=== PATIENT | female | born 1975 | race Caucasian/White ===

== ENCOUNTER 2017-09-13 08:06 | Outpatient (CLI) | payer OTHER ==
[2017-09-13 11:22] LABS: ALBUMIN 4.4 g/dL (3.2-5.5); ALBUMIN/GLOBULIN RATIO 1.7 (1.0-2.2); BILIRUBIN,TOTAL 0.7 mg/dL (0.2-1.0); CREATININE 0.8 mg/dL (0.4-1.0)
[2017-09-13 11:29] LABS: BASOPHILS % (AUTO) 0.8 %; EOSINOPHILS # (AUTO) 0.1 10^3/uL (0.0-0.7); EOSINOPHILS % (AUTO) 2.8 %; HGB - HEMOGLOBIN 13.8 g/dL (12.0-16.0); LYMPHOCYTES # (AUTO) 1.9 10^3/uL (1.5-3.5); LYMPHOCYTES % (AUTO) 36.5 %; MEAN CORPUSCULAR HEMOGLOBIN 33.3 pg (27.0-31.0); MEAN CORPUSCULAR HGB CONC 35.2 g/dL (32.0-36.0); MEAN CORPUSCULAR VOLUME 94.6 fL (81.0-99.0); MEAN PLATELET VOLUME 12.8 fL (7.9-10.8); MONOCYTES # (AUTO) 0.4 10^3/uL (0.0-1.0); MONOCYTES % (AUTO) 7.9 %; NEUTROPHILS # (AUTO) 2.7 10^3/uL (1.5-6.6); PLT - PLATELET COUNT 119 10^3/uL (130-450); RED BLOOD COUNT 4.15 10^6/uL (4.20-5.40); RED CELL DISTRIBUTION WIDTH 12.1 % (12.0-15.0); WHITE BLOOD COUNT 5.1 x10^3/uL (4.8-10.8)
== END 2017-09-13 08:07 | disposition home or self-care (01) ==
LOC: LAB.F 08:06
PROVIDERS: ATTEND Physician Assistant Medical
DX: Z00.00 Encounter for general adult medical examination without abnormal findings (principal); I10 Essential (primary) hypertension
CPT/HCPCS: 36415; 80053; 85025

== ENCOUNTER 2018-01-18 09:00 | Outpatient (CLI) | payer OTHER ==
[2018-01-18 11:44] LABS: MUDS CUTOFF CONCENTRATIONS CUTOFF CONC BELOW:
[2018-01-18 12:01] LABS: AMPHETAMINE SCREEN,URINE NEGATIVE (NEGATIVE); COCAINE SCREEN URINE NEGATIVE (NEGATIVE); METHADONE SCREEN, URINE NEGATIVE (NEGATIVE); METHAMPHETAMINES SCREEN, URINE NEGATIVE (NEGATIVE); OPIATE SCREEN, URINE NEGATIVE (NEGATIVE); OXYCODONE SCREEN, URINE NEGATIVE (NEGATIVE); PROPOXYPHENE SCREEN, URINE NEGATIVE (NEGATIVE); TRICYCLIC ANTIDEPRESSANT,URINE NEGATIVE (NEGATIVE)
[2018-01-18 12:02] LABS: BENZODIAZEPINES SCREEN, URINE POSITIVE (NEGATIVE)
== END 2018-01-18 09:01 | disposition home or self-care (01) ==
LOC: LAB.R 09:00
PROVIDERS: ATTEND Physician Assistant Medical
DX: Z79.899 Other long term (current) drug therapy (principal)
CPT/HCPCS: 80306

== ENCOUNTER 2018-06-15 08:22 | Outpatient (CLI) | payer OTHER ==
--- NOTE | 2018-06-16 09:50 | Mammography Report ---
Reason: ANNUAL SCREENING Procedure Date: 06/15/2018 Accession Number: [id number] / [id number] Procedure: SARINA - Screening Mammo w/Danny CPT Code: FULL RESULT: EXAM: Screening Mammo w/Danny DATE: 06/15/2018 9:20 AM CLINICAL HISTORY: Baseline. No reported personal or family history of breast cancer. TECHNIQUE: Bilateral CC and MLO views were obtained. COMPARISON: Baseline exam. FINDINGS: The breasts demonstrate heterogeneously dense fibroglandular parenchyma bilaterally. Right breast: There is a 13 mm asymmetry seen in the 10-11 o'clock breast middle posterior depth 8 cm from nipple. There are no suspicious calcifications or areas of distortion. Left breast: There are no suspicious masses, calcifications or areas of distortion. IMPRESSION: Incomplete. BI-RADS cat 0. RECOMMENDATION: Right breast: 13 mm asymmetry 10-11 o'clock posterior breast as described. Additional imaging is recommended. Left breast: Negative. Annual mammographic screening is recommended. BI-RADS CATEGORY 0: Incomplete examination STANDARD QUALIFYING STATEMENTS: 1. This examination was not reviewed with the aid of Computer-Aided Detection (CAD). 2. A negative or benign imaging report should not preclude biopsy if clinically suspicious findings are present. 3. Dense breasts may obscure an underlying neoplasm. 4. This examination was reviewed with the aid of 3D breast imaging (tomosynthesis).
== END 2018-06-15 08:23 | disposition home or self-care (01) ==
LOC: DI 08:22
DX: Z12.31 Encounter for screening mammogram for malignant neoplasm of breast (principal); R92.8 Other abnormal and inconclusive findings on diagnostic imaging of breast
CPT/HCPCS: 77063; 77067

== ENCOUNTER 2018-06-21 08:51 | Outpatient (CLI) | payer OTHER ==
--- NOTE | 2018-06-21 13:10 | Mammography Report ---
Reason: ABN MAMMO - RT SPEC VIEWS Procedure Date: 06/21/2018 Accession Number: [id number] / [id number] Procedure: SARINA - Diag Special Views Dig RT CPT Code: FULL RESULT: EXAM: Diag Special Views Dig RT DATE: 06/21/2018 9:59 AM CLINICAL HISTORY: Recall from screening for asymmetry in the posterior 10-11 o'clock breast. TECHNIQUE: Spot magnified CC and MLO views right breast. 90 degree lateral with 3-D and 2-D mammography. COMPARISON: 06/15/2018 baseline FINDINGS: The breasts demonstrate heterogeneously dense fibroglandular parenchyma bilaterally. Right breast: There are no suspicious masses, calcifications or areas of distortion. Area of concern recalled from screening does not persist on additional views consistent with summation of normal tissue. IMPRESSION: Negative examination RECOMMENDATION: Routine annual screening unless otherwise clinically indicated. BI-RADS CATEGORY 1: Negative STANDARD QUALIFYING STATEMENTS: 1. This examination was not reviewed with the aid of Computer-Aided Detection (CAD). 2. A negative or benign imaging report should not preclude biopsy if clinically suspicious findings are present. 3. Dense breasts may obscure an underlying neoplasm. 4. This examination was reviewed with the aid of 3D breast imaging (tomosynthesis).
== END 2018-06-21 08:52 | disposition home or self-care (01) ==
LOC: DI 08:51
PROVIDERS: ATTEND Physician Assistant Medical
DX: R92.2 Inconclusive mammogram (principal)

== ENCOUNTER 2018-07-18 08:35 | Outpatient (CLI) | payer OTHER ==
[2018-07-18 11:55] LABS: BASOPHILS % (AUTO) 0.7 %; EOSINOPHILS # (AUTO) 0.2 10^3/uL (0.0-0.7); EOSINOPHILS % (AUTO) 2.8 %; HGB - HEMOGLOBIN 14.2 g/dL (12.0-16.0); LYMPHOCYTES # (AUTO) 1.7 10^3/uL (1.5-3.5); LYMPHOCYTES % (AUTO) 30.1 %; MEAN CORPUSCULAR HEMOGLOBIN 34.1 pg (27.0-31.0); MEAN CORPUSCULAR VOLUME 94.8 fL (81.0-99.0); MEAN PLATELET VOLUME 12.7 fL (7.9-10.8); MONOCYTES # (AUTO) 0.3 10^3/uL (0.0-1.0); MONOCYTES % (AUTO) 5.1 %; NEUTROPHILS # (AUTO) 3.5 10^3/uL (1.5-6.6); NEUTROPHILS % (AUTO) 61.3 %; PLT - PLATELET COUNT 148 10^3/uL (130-450); RED BLOOD COUNT 4.17 10^6/uL (4.20-5.40); WHITE BLOOD COUNT 5.7 x10^3/uL (4.8-10.8)
== END 2018-07-18 08:36 | disposition home or self-care (01) ==
LOC: LAB.F 08:35
PROVIDERS: ATTEND Physician Assistant Medical
DX: D69.6 Thrombocytopenia, unspecified (principal)
CPT/HCPCS: 36415; 85025

== ENCOUNTER 2018-08-29 21:58 | Outpatient (CLI) | payer BC ==
--- NOTE | 2018-08-29 23:24 | Ultrasound Report ---
Reason: ABDOMINAL PAIN,LOWER,POST TRAUMATIC STRESS SYNDROM Procedure Date: 08/29/2018 Accession Number: [id number] / [id number] Procedure: US - Abdomen Limited CPT Code: FULL RESULT: EXAM: ABDOMEN ULTRASOUND LIMITED EXAM DATE: 08/29/2018 10:59 PM. CLINICAL HISTORY: Right lower quadrant pain. Diarrhea. COMPARISON: None. TECHNIQUE: Real-time scanning was performed with static images obtained. FINDINGS: Appendix is not visualized. Marked compression was tolerated. No lymphadenopathy was seen. Trace free fluid noted in the right lower quadrant, measuring 1.1 x 0.5 x 0.6 cm. No bowel wall thickening seen. Right ovarian cyst was noted measuring 2.9 x 3.0 x 1.6 cm. No torsion seen. IMPRESSION: 1. Appendix not seen. 2. There is a 3 cm right ovarian cyst with trace free fluid in the right lower quadrant. RADIA The call report notification system was initiated by Dr. Robert Fajardo at 11:23 PM hrs on 08/29/2018.
== END 2018-08-29 21:59 | disposition home or self-care (01) ==
LOC: DI 21:58
PROVIDERS: ATTEND Physician Assistant Medical
DX: N83.201 Unspecified ovarian cyst, right side (principal)
CPT/HCPCS: 76705

== ENCOUNTER 2018-09-15 13:34 | Outpatient (CLI) | payer BC ==
[2018-09-15 16:59] LABS: THYROID STIMULATING HORMONE 1.61 uIU/mL (0.34-5.60)
[2018-09-15 17:27] LABS: FOLLICLE STIMULATING HORMONE 9.23 mIU/mL
[2018-09-15 17:28] LABS: LUTEINIZING HORMONE 7.9 mIU/mL
== END 2018-09-15 13:35 | disposition home or self-care (01) ==
LOC: LAB.F 13:34
PROVIDERS: ATTEND Physician Assistant Medical
DX: N95.9 Unspecified menopausal and perimenopausal disorder (principal); I10 Essential (primary) hypertension
CPT/HCPCS: 36415; 82670; 83001; 83002; 84443

== ENCOUNTER 2018-10-11 08:00 | Outpatient (CLI) | payer BC | END 2018-10-11 23:59 | disposition home or self-care (01) | LOC: LAB.R 08:00 | PROVIDERS: ATTEND Nurse Practitioner Obstetrics & Gynecology | DX: R35.0 Frequency of micturition (principal); N89.8 Other specified noninflammatory disorders of vagina | CPT/HCPCS: 87086; 87480; 87510; 87660 ==

== ENCOUNTER 2018-10-24 18:04 | Outpatient (CLI) | payer BC ==
--- NOTE | 2018-10-25 09:53 | XRAY Report ---
Reason: HIP PAIN,BILATERAL Procedure Date: 10/24/2018 Accession Number: [id number] / [id number] Procedure: XR - Hips 2V BILAT CPT Code: FULL RESULT: EXAM: BILATERAL HIP RADIOGRAPHY EXAM DATE: 10/24/2018 07:36 PM. CLINICAL HISTORY: Hip pain, bilateral, worse on the left. COMPARISON: HIP BILAT 12/18/2013 4:30 PM. TECHNIQUE: 2 views each. FINDINGS: Bones: Normal. No fractures or bone lesion. Right Hip: Mild joint space narrowing of the weightbearing surface compared to the left. Mild to moderate marginal osteophyte slightly greater on the right than the left. Left Hip: Mild marginal osteophyte of the femoral head. No significant joint space narrowing. Soft Tissues: Normal. No soft tissue swelling. IMPRESSION: Mild bilateral osteoarthritis of the hips appearing slightly worse on the right than the left. No fracture appreciated. RADIA
== END 2018-10-24 18:05 | disposition home or self-care (01) ==
LOC: DI 18:04
PROVIDERS: ATTEND Physician Assistant Medical
DX: M16.0 Bilateral primary osteoarthritis of hip (principal)
CPT/HCPCS: 73521

== ENCOUNTER 2018-11-29 14:21 | Outpatient (CLI) | payer BC ==
[2018-11-29 19:09] LABS: ALBUMIN/GLOBULIN RATIO 1.5 (1.0-2.2); BILIRUBIN,TOTAL 0.4 mg/dL (0.2-1.0); CALCIUM 8.8 mg/dL (8.5-10.3); CREATININE 0.7 mg/dL (0.4-1.0); TOTAL PROTEIN 6.6 g/dL (6.7-8.2)
[2018-11-30 07:28] LABS: PROGESTERONE 2.8 ng/mL
== END 2018-11-29 14:22 | disposition home or self-care (01) ==
LOC: LAB.F 14:21
PROVIDERS: ATTEND Physician Assistant Medical
DX: Z51.81 Encounter for therapeutic drug level monitoring (principal); N95.9 Unspecified menopausal and perimenopausal disorder; Z79.899 Other long term (current) drug therapy
CPT/HCPCS: 36415; 80053; 82670; 84144

== ENCOUNTER 2018-12-06 08:47 | Outpatient (CLI) | payer BC ==
[2018-12-06] MEDS ORDERED: GADOPENTETATE DIMEGLUMINE 5 ML VIAL IVP ONE ×2 (09:04→16:19)
[2018-12-06] MEDS ORDERED: BUFFERED LIDOCAINE 10 ML SYRINGE ONE (09:04)
[2018-12-06] MEDS ORDERED: IOTHALAMATE MEGLUMINE 50 ML VIAL ONE (09:05)
--- NOTE | 2018-12-06 14:33 | XRAY Report ---
Reason: UNILATERAL PRIMARY OSTEOARTHRITIS, RIGHT HIP Procedure Date: 12/06/2018 Accession Number: [id number] / [id number] Procedure: FL - Arthrogram Needle Placement CPT Code: FULL RESULT: EXAM: Arthrogram Needle Placement DATE: 12/06/2018 10:00 AM CLINICAL HISTORY: UNILATERAL PRIMARY OSTEOARTHRITIS, RIGHT HIP, RIGHT HIP PAIN COMPARISON: Plain films 12/18/2013 and 10/24/2018 TECHNIQUE: The risks, benefits, and alternatives of the procedure were discussed with the patient. All questions were answered. Written and verbal consent were obtained. The right hip joint was marked under fluoroscopy and prepped and draped in a sterile manner. Local anesthesia was performed with 1% lidocaine. A 22-gauge needle was then inserted into the hip joint. 10 mL of a solution containing 1% lidocaine, iodinated contrast, and gadolinium contrast was then injected. The needle was removed without immediate complication. Other: None. Fluoroscopic exposure time: 1 minute 10 seconds minutes. Number of fluoroscopic images: 3 FINDINGS: Bones and joints: No fracture or subluxation. Injection: Fluoroscopic images demonstrate needle placement and contrast in the right hip joint. IMPRESSION: Successful fluoroscopically guided arthrographic injection of the right hip joint. RADIA
[2018-12-06] MEDS ORDERED: IOTHALAMATE MEGLUMINE 50 ML VIAL IVP ONE (16:19)
[2018-12-06] MEDS ORDERED: BUFFERED LIDOCAINE 10 ML SYRINGE IU ONE (16:19)
--- NOTE | 2018-12-07 08:12 | MRI Report ---
Reason: UNILATERAL PRIMARY OSTEOARTHRITIS, RIGHT HIP Procedure Date: 12/06/2018 Accession Number: [id number] / [id number] Procedure: MRI - Arthrogram Hip RT CPT Code: FULL RESULT: EXAM: RIGHT HIP MRI ARTHROGRAM WITH CONTRAST EXAM DATE: 12/06/2018 10:39 AM. CLINICAL HISTORY: Right hip pain and osteoarthritis. COMPARISON: Bilateral hip radiography from 10/24/2018. TECHNIQUE: Multiplanar, multisequence T1-weighted and fluid-sensitive, small ilxby-je-ozmz sequences of the hip and large xrwgd-dm-orps sequences of the pelvis after an arthrographic injection of dilute gadolinium, dictated under a separate exam. Other: None. FINDINGS: Bones: Marginal osteophytes at the acetabulums and femoral heads. No acute fracture or osteonecrosis. Left Hip: The right lateral center edge angle is approximately 18 degrees. No acetabular retroversion. Femoral head/neck offset is within normal limits. No loose bodies. Grade III-IV chondromalacia at the superior and anterior aspects of the right acetabulum and femoral head. There are small focal tears at the anterior superior and anterior aspects of the right acetabular labrum. Free edge fraying at the right acetabular labrum. The ligamentum teres is intact. Other Joints: The visualized lumbar spine, sacroiliac joints, and pubic symphysis are unremarkable. Focal subcortical marrow edema at the anterosuperior aspect of the left acetabulum. The left lateral center edge angle is approximately 22 degrees. Musculature: No edema or fatty atrophy. The gluteus medius and minimus tendons are normal. The visualized hamstring tendons are normal. The ischiofemoral space is normal. Pelvic Cavity: The visualized viscera are unremarkable. No lymphadenopathy. Trace amount of free fluid in the pelvis. Other: The visualized sciatic nerves are unremarkable. No bursitis. The subcutaneous tissues are unremarkable. IMPRESSION: 1. Bilateral hip osteoarthritis, right more than left. 2. Decreased lateral center edge angles at both hips suggestive of acetabular dysplasia. 3. Small focal tears at the anterior superior and anterior aspects of the right acetabular labrum. Free edge fraying of the right acetabular labrum. RADIA
== END 2018-12-06 08:48 | disposition home or self-care (01) ==
LOC: DI 08:47
PROVIDERS: ATTEND Orthopaedic Surgery
DX: M16.0 Bilateral primary osteoarthritis of hip (principal); S73.191A Other sprain of right hip, initial encounter
CPT/HCPCS: 27093; 73722; 77002; Q9961

== ENCOUNTER 2019-04-28 11:13 | Outpatient (CLI) | payer BC ==
--- NOTE | 2019-04-30 08:48 | CT Report ---
Reason: DEVIATED SEPTUM Procedure Date: 04/28/2019 Accession Number: [id number] / [id number] Procedure: CT - Sinuses CPT Code: FULL RESULT: EXAM: CT SINUS EXAM DATE: 04/28/2019 11:55 AM. HISTORY: Deviated septum. COMPARISONS: None. TECHNIQUE: Routine multi-axial CT imaging performed through the sinuses. Iodinated IV contrast: None. Reconstructions: Multiplanar reformats. In accordance with CT protocol optimization, one or more of the following dose reduction techniques were utilized for this exam: automated exposure control, adjustment of mA and/or KV based on patient size, or use of iterative reconstructive technique. FINDINGS: RIGHT Frontal: Trace mucosal thickening of the medial and inferior lateral bansal. Ethmoid: Normal. Maxillary: Normal. Sphenoid: Trace mucosal thickening along the medial wall. Drainage Pathways: The frontal recess, ostiomeatal complex and sphenoethmoidal recess are patent and normal. LEFT Frontal: Normal. Ethmoid: Normal. Maxillary: Approximately 50% opacification with mucus products, with an air mucus level noted. No periosteal reaction detected. Sphenoid: Trace mucosal thickening in the anterior wall. Drainage Pathways: The frontal recess, ostiomeatal complex and sphenoethmoidal recess are patent and normal. Nasal Cavity: Normal. No mass or significant anatomic abnormality evident. Osseous Structures: Unremarkable. Orbits: Unremarkable. Other: Opacification of a few mastoid air cells bilaterally. IMPRESSION: Left maxillary sinus disease. RADIA
== END 2019-04-28 11:14 | disposition home or self-care (01) ==
LOC: DI 11:13
PROVIDERS: ATTEND Otolaryngology Otolaryngology/Facial Plastic Surgery
DX: J34.2 Deviated nasal septum (principal); J32.0 Chronic maxillary sinusitis
CPT/HCPCS: 70486

== ENCOUNTER 2019-07-12 07:10 | Outpatient (CLI) | payer BC ==
[2019-07-12 10:25] LABS: BASOPHILS # (AUTO) 0.1 10^3/uL (0.0-0.1); BASOPHILS % (AUTO) 0.9 %; EOSINOPHILS # (AUTO) 0.3 10^3/uL (0.0-0.7); EOSINOPHILS % (AUTO) 4.1 %; HGB - HEMOGLOBIN 13.4 g/dL (12.0-16.0); LYMPHOCYTES # (AUTO) 2.3 10^3/uL (1.5-3.5); LYMPHOCYTES % (AUTO) 36.9 %; MEAN CORPUSCULAR HEMOGLOBIN 31.8 pg (27.0-31.0); MEAN CORPUSCULAR HGB CONC 33.2 g/dL (32.0-36.0); MEAN PLATELET VOLUME 13.4 fL (7.9-10.8); MONOCYTES # (AUTO) 0.5 10^3/uL (0.0-1.0); MONOCYTES % (AUTO) 8.2 %; NEUTROPHILS # (AUTO) 3.2 10^3/uL (1.5-6.6); NEUTROPHILS % (AUTO) 49.6 %; PLT - PLATELET COUNT 194 10^3/uL (130-450); RED BLOOD COUNT 4.21 10^6/uL (4.20-5.40); RED CELL DISTRIBUTION WIDTH 12.2 % (12.0-15.0); WHITE BLOOD COUNT 6.4 x10^3/uL (4.8-10.8)
[2019-07-12 10:39] LABS: ALBUMIN 4.3 g/dL (3.2-5.5); ALBUMIN/GLOBULIN RATIO 1.6 (1.0-2.2); ALKALINE PHOSPHATASE 53 IU/L (42-121); ALT ALANINE AMINOTRANSFERASE 21 IU/L (10-60); AST ASPARTATE AMINOTRANSFERASE 20 IU/L (10-42); BILIRUBIN,TOTAL 0.5 mg/dL (0.2-1.0); BUN - BLOOD UREA NITROGEN 13 mg/dL (6-20); CALCIUM 9.2 mg/dL (8.5-10.3); CARBON DIOXIDE - CO2 27 mmol/L (21-32); CHLORIDE 105 mmol/L (101-111); CREATININE 0.8 mg/dL (0.4-1.0); CRP - C-REACTIVE PROTEIN < 1.0 mg/dL (0-1.0); GFR - MDRD 78 (>89); GLUCOSE 94 mg/dL (70-100); SODIUM 139 mmol/L (135-145)
[2019-07-12 10:40] LABS: PT - PROTHROMBIN TIME 11.4 secs (9.9-12.6)
== END 2019-07-12 07:11 | disposition home or self-care (01) ==
LOC: LAB.S 07:10
PROVIDERS: ATTEND Physician Assistant Medical
DX: Z01.812 Encounter for preprocedural laboratory examination (principal); I10 Essential (primary) hypertension; D69.6 Thrombocytopenia, unspecified; M94.1 Relapsing polychondritis
CPT/HCPCS: 36415; 80053; 85025; 85610; 85651; 86140

== ENCOUNTER 2019-11-26 19:21 | Outpatient (CLI) | payer BC | END 2019-11-26 19:22 | disposition home or self-care (01) | LOC: COV 19:21 | PROVIDERS: ATTEND Family Medicine | DX: R05 Cough (principal); R53.83 Other fatigue; J02.9 Acute pharyngitis, unspecified | CPT/HCPCS: 81599 ==

== ENCOUNTER 2020-09-11 07:17 | Outpatient (CLI) | payer BC ==
[2020-09-11 15:04] LABS: BASOPHILS % (AUTO) 0.8 %; EOSINOPHILS # (AUTO) 0.2 10^3/uL (0.0-0.7); EOSINOPHILS % (AUTO) 4.9 %; HGB - HEMOGLOBIN 13.8 g/dL (12.0-16.0); LYMPHOCYTES % (AUTO) 39.6 %; MEAN CORPUSCULAR HEMOGLOBIN 32.2 pg (27.0-31.0); MEAN CORPUSCULAR HGB CONC 33.6 g/dL (32.0-36.0); MEAN CORPUSCULAR VOLUME 95.8 fL (81.0-99.0); MONOCYTES # (AUTO) 0.4 10^3/uL (0.0-1.0); MONOCYTES % (AUTO) 8.9 %; NEUTROPHILS # (AUTO) 2.3 10^3/uL (1.5-6.6); NEUTROPHILS % (AUTO) 45.8 %; PLT - PLATELET COUNT 175 10^3/uL (130-450); RED BLOOD COUNT 4.29 10^6/uL (4.20-5.40); RED CELL DISTRIBUTION WIDTH 12.5 % (12.0-15.0); WHITE BLOOD COUNT 4.9 x10^3/uL (4.8-10.8)
[2020-09-11 15:26] LABS: ALBUMIN 4.6 g/dL (3.2-5.5); ALBUMIN/GLOBULIN RATIO 1.8 (1.0-2.2); ALKALINE PHOSPHATASE 52 IU/L (42-121); ALT ALANINE AMINOTRANSFERASE 19 IU/L (10-60); AST ASPARTATE AMINOTRANSFERASE 17 IU/L (10-42); BILIRUBIN,TOTAL 0.5 mg/dL (0.2-1.0); BUN - BLOOD UREA NITROGEN 15 mg/dL (6-20); CALCIUM 9.6 mg/dL (8.5-10.3); CARBON DIOXIDE - CO2 25 mmol/L (21-32); CHLORIDE 102 mmol/L (101-111); CHOL/HDL RATIO 3.4 (<4.4); CHOLESTEROL 151 mg/dL; CREATININE 0.6 mg/dL (0.4-1.0); GLUCOSE 104 mg/dL (70-100); HDL CHOLESTEROL 45 mg/dL; LDL CHOLESTEROL,CALCULATED 90 mg/dL; TOTAL PROTEIN 7.2 g/dL (6.7-8.2); VLDL CHOLESTEROL 16 mg/dL
== END 2020-09-11 07:18 | disposition home or self-care (01) ==
LOC: LAB.S 07:17
PROVIDERS: ATTEND Registered Nurse
DX: N95.9 Unspecified menopausal and perimenopausal disorder (principal); F41.0 Panic disorder [episodic paroxysmal anxiety]; G47.33 Obstructive sleep apnea (adult) (pediatric); E66.9 Obesity, unspecified; I10 Essential (primary) hypertension; F43.10 Post-traumatic stress disorder, unspecified; F41.9 Anxiety disorder, unspecified; F32.9 Major depressive disorder, single episode, unspecified
CPT/HCPCS: 36415; 80053; 80061; 80175; 83721; 84443; 85025

== ENCOUNTER 2020-10-12 14:27 | Outpatient (CLI) | payer BC ==
--- NOTE | 2020-10-12 17:10 | Ultrasound Report ---
PROCEDURE: Pelvic w/Transvaginal INDICATIONS: ABN UTERINE BLEEDING TECHNIQUE: Real-time scanning was performed of the pelvic organs, with image documentation. Additional endovagi nal scanning was necessary due to incomplete visualization of the adnexal and endometrial structures by transabdominal scanning. COMPARISON: None. FINDINGS: No pathologic free abdominal or pelvic fluid. Uterus: Uterus is normal in size at 9.4 x 5.2 x 6.7 cm. Uterine volume is 171 mL. The endometrium me asures 10 mm in combined thickness. Ovaries: Right ovary measures 2.7 x 3.6 x 2.8 cm, and contains a hemorrhagic cyst measuring 2.2 x 1. 8 x 2.2 cm. Left ovary measures 1.9 x 1.9 x 1.4 cm. IMPRESSION: Unremarkable pelvic ultrasound. Reviewed by: Harish Noriega MD on 10/12/2020 4:09 PM [facility] Approved by: Harish Noriega MD on 10/12/2020 4:09 PM [facility] Station ID: [id number]
== END 2020-10-12 14:28 | disposition home or self-care (01) ==
LOC: DI 14:27
PROVIDERS: ATTEND Obstetrics & Gynecology
DX: N93.8 Other specified abnormal uterine and vaginal bleeding (principal)

== ENCOUNTER 2020-10-19 15:22 | Outpatient (CLI) | payer BC ==
--- NOTE | 2020-10-21 12:49 | Mammography Report ---
BILATERAL DIGITAL SCREENING MAMMOGRAM 3D/2D: 10/19/2020 CLINICAL: Routine screening. Comparison is made to exam dated: 06/21/2018 mammogram - [facility]. The tissue o f both breasts is heterogeneously dense. This may lower the sensitivity of mammography. There is a possible 0.4 cm oval equal density asymmetry in the left breast at 1 o'clock middle depth. This is more prominent. No other significant masses, calcifications, or other findings are seen in either breast. IMPRESSION: INCOMPLETE: NEEDS ADDITIONAL IMAGING EVALUATION The possible 0.4 cm oval equal density asymmetry in the left breast is indeterminate. Additional vie ws with possible ultrasound are recommended. This exam was interpreted at Station ID: [id number]. NOTE: For mammograms, a report in lay terms will be sent to the patient. Approximately 15% of breast malignancies will not be visualized mammographically. In the management of a palpable breast mass, a negative mammogram must not discourage biopsy of a clinically suspicious lesion. Electronically Signed By: Lake Rosenbaum M.D. aty/:10/20/2020 07:42:05 ACR BI-RADS Category 0: Incomplete 3340F PARENCHYMAL PATTERN: (D) - The breast(s) demonstrate(s) heterogeneously dense fibroglandular parnarcisoy ma. BI-RADS CATEGORY: (0) - 0 Mammo and [place] [id number] Immediate follow-up LATERALITY: (L)
== END 2020-10-19 15:23 | disposition home or self-care (01) ==
LOC: DI.S 15:22
PROVIDERS: ATTEND Obstetrics & Gynecology
DX: Z12.31 Encounter for screening mammogram for malignant neoplasm of breast (principal); R92.8 Other abnormal and inconclusive findings on diagnostic imaging of breast

== ENCOUNTER 2020-11-04 08:25 | Outpatient (CLI) | payer BC ==
--- NOTE | 2020-11-04 13:28 | Ultrasound Report ---
LIMITED ULTRASOUND OF LEFT BREAST: 11/04/2020 CLINICAL: Patient returns today to evaluate an asymmetry in left breast. Comparison is made to exams dated: 10/19/2020 mammogram, 06/21/2018 mammogram, and 06/15/2018 mammogra - [facility]. Color flow ultrasound of the left breast upper outer quadrant was performed. Jones scale images of t he real-time examination were reviewed. No significant abnormalities were seen sonographically in the left breast. Specifically, no finding t o correspond to the patient's screening mammographic abnormality. IMPRESSION: PROBABLY BENIGN There is no sonographic correlate to the patient's screening mammography abnormality. A follow-up mammogram and possible ultrasound in 6 months is recommended to demonstrate stability of this area on mammogram. Findings and recommendations were conveyed to the patient at time of exam. This exam was interpreted at Station ID: [id number]. Electronically Signed By: Adalgisa wilson/:11/04/2020 10:11:49 Ultrasound BI-RADS: 3 Probably benign BI-RADS CATEGORY: (3) - 3 Mammo and US [id number] 6 month follow-up LATERALITY: (B)
--- NOTE | 2020-11-04 13:28 | Mammography Report ---
UNILATERAL LEFT DIGITAL DIAGNOSTIC MAMMOGRAM 3D/2D: 11/04/2020 CLINICAL: Patient returns today to evaluate a focal asymmetry in the left breast. Comparison is made to exams dated: 06/21/2018 mammogram and 06/15/2018 mammogram - [facility]. The tissue of left breast is heterogeneously dense. This may lower the sensitivity of ma mmography. There is a possible 5 mm oval equal density asymmetry with a circumscribed margin in the left breast at 1 o'clock middle depth. There also is a 1.3 cm oval asymmetry in the left breast middle depth superior region seen on the med iolateral oblique view only. Finding is seen only on ML view tomography. No other significant masses or calcifications are seen in the breast. IMPRESSION: INCOMPLETE: NEEDS ADDITIONAL IMAGING EVALUATION The possible 5 mm oval equal density asymmetry in the left breast at 1 o'clock middle depth remains i ndeterminate. An ultrasound is recommended. The 1.3 cm oval asymmetry in the left breast middle depth superior region seen on the mediolateral ob lique view only is indeterminate. An ultrasound is recommended. This was performed immediately following this exam. This exam was interpreted at Station ID: [id number]. NOTE: For mammograms, a report in lay terms will be sent to the patient. Approximately 15% of breast malignancies will not be visualized mammographically. In the management of a palpable breast mass, a negative mammogram must not discourage biopsy of a clinically suspicious lesion. Electronically Signed By: Adalgisa wilson/:11/04/2020 09:00:37 ACR BI-RADS Category 0: Incomplete 3340F PARENCHYMAL PATTERN: (D) - The breast(s) demonstrate(s) heterogeneously dense fibroglandular parenchy ma. BI-RADS CATEGORY: (0) - 0 Ultrasound [id number] Immediate follow-up LATERALITY: (B)
== END 2020-11-04 08:26 | disposition home or self-care (01) ==
LOC: DI 08:25
PROVIDERS: ATTEND Registered Nurse
DX: R92.8 Other abnormal and inconclusive findings on diagnostic imaging of breast (principal)

== ENCOUNTER 2021-03-25 16:11 | Outpatient (CLI) | payer BC ==
[2021-03-25 16:47] VITALS: BP 130/76
--- NOTE | 2021-03-25 16:47 | SLEEP CARE CONSULTATION ---
Information from patient questionnaire entered by Alicia Stoner. I have reviewed and concur with the information entered by Alicia Stoner. This document represents the service I personally performed and the decisions made by me, Yvette Wild ARNP. History of Present Illness Service Date and Time: 03/25/2021 1611 Reason for Visit: New patient Chief Complaint: reports: Unrefreshed sleep, Snoring, Excessive daytime sleepiness, Fatigue. denies: Observed pauses in breathing Date of Onset: no idea of when started Usual bedtime: 10:00 PM Time it takes to fall asleep: 15-30 minutes Snores at night: Yes Observed to quit breathing while asleep: No Sleeps alone due to snoring: No Reasons for waking at night: reports: Bathroom, Other (Unknown reason). denies: Choking, Gasping for air Toss, Turn, or Twitch while sleeping: Yes Recalls having dreams: No Usually gets out of bed at: 5:00 AM; weekends [id number] Feels refreshed in the morning: No Morning headache: No Sleepy or fatigued during the day: Yes Ever fallen asleep while driving: No (no drowsy driving) Takes day naps: No Dreams during day naps: No Prior sleep studies: Yes Year and Where: 2014 [facility] Type of Sleep Study: Polysomnography Additional HPI information: I had the pleasure of seeing JOSE ELIAS VILLAVICENCIO today regarding her moderate obstructive sleep apnea with an AHI 17.7. She was started on CPAP in 2014 but is not currently on PAP therapy. Her current complaints are excessive daytime sleepiness and fatigue. She has been severely fatigue lately, she has more heartburn and not able to keep weight down. She is getting very dozy at work. She has seen her PCP who is running some tests and recommended she start some vitamins. She has hypertension. She snores loudly and her boyfriend pokes her at night to turn over. He has also told her that she sleeps very restless. He has not told her that she has had any pauses in breathing or gasping in her sleep. She does not wake up feeling rested in the morning. 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 Patient is single and lives in [place]. Have you smoked in the past 12 months: No Alcohol use: Yes Alcohol amount and frequency: 5-6 a week Caffeine use: Yes Caffeine amount and frequency: 2 cups daily Family History Family history of sleep disordered breathing: Yes Family Hx Sleep Apnea: Other: Sleep apnea - Treated (Aunt) Allergies and Home Medications Drug allergies reviewed: Yes (Sulfa based antibiotics ) Home medication list reviewed: Yes Allergy and home medication list: Metoprolol Lamotrigine Hydroxychoriquine Zyrtec Flonase Review of Systems Weight gain over past 5 years: 70 Weight loss over past 5 years: 25 Cardiovascular: reports: high blood pressure Respiratory: reports: shortness of breath (on hills, steps) Gastrointestinal: reports: heartburn Psychiatric: reports: anxiety Ear/Nose/Throat: reports: nasal congestion, sinus problems, dry mouth/throat, tonsillectomy, wisdom teeth removed Endocrine: reports: sluggishness (/tired), too hot or cold Musculoskeletal: reports: joint pain (/stiffness), neck pain Immunologic: reports: sneezing (runny nose), rash, itching Physical Exam Blood Pressure: 130/76 Cuff size: wrist Heart Rate: 83 O2 Saturation: 98 Height: 5 ft 7 in Weight: 218 lb Body Mass Index: 34.1 BMI Classification: Obese Neck circumference: 15.25 Mouth and throat: narrow oropharynx Soft palate: long Hard palate: normal Uvula visualization: 25% Mallampati Class III Tongue: normal in size Tonsils: absent bilaterally Neck: normal w/o lymphadenopathy or thyromegaly Heart: regular rate and rhythm Lungs: clear bilaterally Impression and Plan 1. Suspected Obstructive Sleep Apnea-Hypopnea Syndrome, as suggested by a history of loud and irregular snoring, unrefreshed sleep, and excessive daytime sleepiness. Narrow oropharynx and obesity are common predisposing factors for obstructive sleep apnea-hypopnea syndrome. I recommend proceeding to polysomnography to confirm the diagnosis and to assess severity. If the patient has significant sleep disordered breathing, a manual CPAP titration study will also be performed to find the optimal treatment pressure. I informed the patient of what the sleep studies involve and after some discussion, obtained agreement to proceed. The pathophysiology of obstructive sleep apnea-hypopnea syndrome was discussed with the patient and health risks of cardiovascular and cerebrovascular disease if not treated. Risks of drowsy driving discussed in detail and patient advised to avoid long distance driving and to pullman car clerk at the first sign of drowsiness. Patient agreed to plan. * Schedule polysomnography +- manual CPAP titration study and return in 1-2 w eeks after the study to discuss result and initiate therapy. * Avoid long distance driving or driving when feeling sleepy. * Avoid alcohol, sedative and muscle relaxant around bedtime. * Attempt to lose weight. * Review instructions provided by trained office staff on how to prepare for the sleep study. * Return for follow-up after sleep study completed. Counseling Topics: Weight loss health impact Visit Type: In Office Time Spent with Patient (minutes): 30 Provider Statement: I spent 100% of the Face to Face Visit with the patient with greater than 50% spent counseling the patient and coordination of care.
== END 2021-03-25 16:12 | disposition home or self-care (01) ==
LOC: SC 16:11
PROVIDERS: ATTEND Nurse Practitioner Family
DX: G47.33 Obstructive sleep apnea (adult) (pediatric) (principal); E66.9 Obesity, unspecified; Z68.34 Body mass index [BMI] 34.0-34.9, adult
CPT/HCPCS: 99203; 99212

== ENCOUNTER 2021-04-04 10:07 | Outpatient (CLI) | payer BC ==
[2021-04-04 15:18] LABS: ABSOLUTE RETICS # AUTO 0.086 10^6/uL (0.020-0.110); BASOPHILS % (AUTO) 0.6 %; EOSINOPHILS # (AUTO) 0.3 10^3/uL (0.0-0.7); EOSINOPHILS % (AUTO) 5.4 %; HCT - HEMATOCRIT 38.2 % (37.0-47.0); HGB - HEMOGLOBIN 13.2 g/dL (12.0-16.0); LYMPHOCYTES # (AUTO) 1.9 10^3/uL (1.5-3.5); LYMPHOCYTES % (AUTO) 39.5 %; MEAN CORPUSCULAR HEMOGLOBIN 32.5 pg (27.0-31.0); MEAN CORPUSCULAR HGB CONC 34.6 g/dL (32.0-36.0); MEAN CORPUSCULAR VOLUME 94.1 fL (81.0-99.0); MEAN PLATELET VOLUME 13.5 fL (7.9-10.8); MONOCYTES # (AUTO) 0.4 10^3/uL (0.0-1.0); MONOCYTES % (AUTO) 7.5 %; NEUTROPHILS # (AUTO) 2.2 10^3/uL (1.5-6.6); NEUTROPHILS % (AUTO) 46.8 %; PLT - PLATELET COUNT 179 10^3/uL (130-450); RED BLOOD COUNT 4.06 10^6/uL (4.20-5.40); RED CELL DISTRIBUTION WIDTH 11.9 % (12.0-15.0); RETICULOCYTE COUNT % (AUTO) 2.12 % (0.5-2.3); WHITE BLOOD COUNT 4.8 x10^3/uL (4.8-10.8)
[2021-04-04 15:42] LABS: % IRON SATURATION 17 % (20-50); ALBUMIN 4.5 g/dL (3.2-5.5); ALBUMIN/GLOBULIN RATIO 1.6 (1.0-2.2); ALKALINE PHOSPHATASE 57 IU/L (42-121); ALT ALANINE AMINOTRANSFERASE 22 IU/L (10-60); AST ASPARTATE AMINOTRANSFERASE 26 IU/L (10-42); BILIRUBIN,TOTAL 0.7 mg/dL (0.2-1.0); BUN - BLOOD UREA NITROGEN 10 mg/dL (6-20); CALCIUM 9.4 mg/dL (8.5-10.3); CARBON DIOXIDE - CO2 25 mmol/L (21-32); CHLORIDE 103 mmol/L (101-111); CHOL/HDL RATIO 2.8 (<4.4); CHOLESTEROL 141 mg/dL; CREATININE 0.8 mg/dL (0.4-1.0); GFR - MDRD 77 (>89); GLUCOSE 99 mg/dL (70-100); HDL CHOLESTEROL 50 mg/dL; IRON 83 ug/dL (28-170); LDL CHOLESTEROL,CALCULATED 74 mg/dL; LDL/HDL RATIO 1.5 (<4.4); POTASSIUM 3.9 mmol/L (3.5-5.0); SODIUM 138 mmol/L (135-145); TOTAL IRON BINDING CAPACITY 489 ug/dL (250-450); TOTAL PROTEIN 7.4 g/dL (6.7-8.2); TRANSFERRIN 349 mg/dL (192-382); TRIGLYCERIDES 83 mg/dL; VLDL CHOLESTEROL 17 mg/dL
[2021-04-04 15:48] LABS: THYROID STIMULATING HORMONE 2.88 uIU/mL (0.34-5.60)
[2021-04-04 15:55] LABS: FERRITIN 29.9 ng/mL (11.0-306.8)
== END 2021-04-04 10:08 | disposition home or self-care (01) ==
LOC: LAB.S 10:07
PROVIDERS: ATTEND Registered Nurse
DX: I10 Essential (primary) hypertension (principal); R53.83 Other fatigue; G47.33 Obstructive sleep apnea (adult) (pediatric); E66.9 Obesity, unspecified
CPT/HCPCS: 36415; 80053; 80061; 81599; 82607; 82728; 82746; 83020; 83540; 83721; 84443; 84466; 85014; 85018; 85025; 85041; 85045

== ENCOUNTER 2021-09-08 06:56 | Outpatient (CLI) | payer BC ==
--- NOTE | 2021-09-08 12:31 | Ultrasound Report ---
PROCEDURE: Abdomen Limited INDICATIONS: LIVER LESION TECHNIQUE: Real-time focused scanning was performed of the abdomen, with image documentation. COMPARISON: Ultrasound abdomen limited, 08/29/2018. CT coronary angiogram report, 08/19/2021. FINDINGS: Liver is normal in size. Diffuse increased hepatic echotexture suggests fatty infiltration . There is a 1.5 cm cyst in the left hepatic lobe. The gallbladder is normal without gallstones. Comm on bile duct measures 3.2 mm. Visualized pancreas is normal. Right kidney is normal in size and demon strates no hydronephrosis. IMPRESSION: There is a 1.5 cm cyst in the left hepatic lobe. No further follow-up imaging is recommended. Reviewed by: Rd Alonso MD on 09/08/2021 12:30 PM PST Approved by: Rd Alonso MD on 09/08/2021 12:30 PM PST Station ID: [id number]
== END 2021-09-08 06:57 | disposition home or self-care (01) ==
LOC: DI 06:56
PROVIDERS: ATTEND Registered Nurse
DX: K76.89 Other specified diseases of liver (principal)

== ENCOUNTER 2021-09-09 08:00 | Outpatient (CLI) | payer BC ==
--- NOTE | 2021-09-09 18:25 | XRAY Report ---
PROCEDURE: Ankle 3 View LT INDICATIONS: SPRAIN OF L ANKLE TECHNIQUE: 3 views of the ankle were acquired. COMPARISON: None FINDINGS: Bones: No fractures or dislocations. Ankle mortise is normally aligned. No suspicious bony lesions . Soft tissues: Lateral ankle soft tissue swelling is seen. No tibiotalar joint effusion. Achilles ten don appears normal. IMPRESSION: Lateral ankle soft tissue swelling. No ankle fracture or dislocation. Ankle mortise is i ntact. Reviewed by: Rajiv Gilbert MD on 09/09/2021 6:24 PM PST Approved by: Rajiv Gilbert MD on 09/09/2021 6:24 PM PST Station ID: [id number]
== END 2021-09-09 23:59 ==
LOC: DI.N 08:00
PROVIDERS: ATTEND Physician Assistant Medical
DX: S93.402A Sprain of unspecified ligament of left ankle, initial encounter (principal)

== ENCOUNTER 2021-11-19 14:57 | Outpatient (CLI) | payer BC ==
[2021-11-19] MEDS ORDERED: ALBUTEROL 1 PUFF INH STA (16:37)
== END 2021-11-19 14:58 | disposition home or self-care (01) ==
LOC: RT 14:57
PROVIDERS: ATTEND Registered Nurse
DX: R06.02 Shortness of breath (principal); R53.83 Other fatigue
CPT/HCPCS: 94060; 94729

== ENCOUNTER 2022-03-04 08:04 | Emergency (ER) | payer BC ==
[2022-03-04 08:22] VITALS: BP 168/109
[2022-03-04] MEDS ORDERED: ONDANSETRON ODT 4 MG TABLET TL STA (08:43)
--- NOTE | 2022-03-04 08:46 | ED Physician Documentation ---
History of Present Illness - Stated complaint Stated Complaint: FALL/HEAD INJ - Chief complaint Chief Complaint: Trauma Hd/Nk - History obtained from History obtained from: Patient - Additonal information Additional information: Pt comes to the ED with CC of fall backwards off her couch yesterday with nausea and dizziness today. She does not remember hitting her head and has not noticed a sore or swollen area on her scalp. She felt fine in that regard yesterday, but today, noticed onset of sx. She did twist her L ankle, as well, but has been ambulatory on it. No other injuries. She states that looking at screens makes her feel disoriented, and that she vomited while on her computer this morning. However, she feels fine looking at anything else. Review of Systems Ten Systems: 10 systems reviewed and negative Constitutional: reports: Reviewed and negative Eyes: reports: Reviewed and negative Ears: reports: Reviewed and negative Nose: reports: Reviewed and negative Throat: reports: Reviewed and negative Cardiac: reports: Reviewed and negative Respiratory: reports: Reviewed and negative GI: reports: Nausea, Vomiting : reports: Reviewed and negative Skin: reports: Reviewed and negative Musculoskeletal: reports: Joint pain Neurologic: reports: Reviewed and negative Psychiatric: reports: Reviewed and negative Endocrine: reports: Reviewed and negative Immunocompromised: reports: Reviewed and negative PD PAST MEDICAL HISTORY - Past Medical History Cardiovascular: None Respiratory: None Endocrine/Autoimmune: None GI: None : None HEENT: None Psych: Depression, Anxiety Musculoskeletal: None Derm: Eczema - Past Surgical History HEENT: Tonsil/Adenoidectomy - Present Medications Home Medications: Ambulatory Orders Medication Instructions Recorded Confirmed Cetirizine [ZyrTEC] 1 tab PO DAILY 10/25/17 10/25/17 Cholecalciferol (Vitamin D3) 4,000 units PO DAILY 10/25/17 10/25/17 [Vitamin D3] Clobetasol 0.05% Oint [Temovate 1 applic TOP DAILY 10/25/17 10/25/17 0.05% Oint] Hydrocortisone 1 applic TOP DAILY 10/25/17 10/25/17 Ibuprofen 1 tab PO DAILY 10/25/17 10/25/17 LORazepam [Lorazepam] 1 tab PO DAILY 10/25/17 10/25/17 Lamotrigine [Lamotrigine ER] 1 tab PO DAILY 10/25/17 10/25/17 Levonorgestrel-Ethin Estradiol 1 tab PO DAILY 10/25/17 10/25/17 [Aviane-28 Tablet] Multivitamin [Multivitamins] 1 cap PO DAILY 10/25/17 10/25/17 [place]-3/Dha/Epa/Fish Oil [[place] 3 1 cap PO DAILY 10/25/17 10/25/17 500 Softgel] Ondansetron Odt [Zofran] 4 mg TL Q6H PRN #10 tablet 03/04/22 - Allergies Allergies/Adverse Reactions: Allergies Allergy/AdvReac Type Severity Reaction Status Date / Time Sulfa (Sulfonamide Allergy Unknown Verified 03/04/22 08:22 Antibiotics) PD ED PE NORMAL - Vitals Vital signs reviewed: Yes - General General: Alert and oriented X 3, No acute distress - HEENT HEENT: Atraumatic (No findings of trauma to any part of the head or face.), PERRL, EOMI, Moist mucous membranes - Neck Neck: Supple, no meningeal sign, No bony TTP - Cardiac Cardiac: RRR, No murmur, Strong equal pulses - Respiratory Respiratory: No respiratory distress, Clear bilaterally - Derm Derm: Normal color, Warm and dry, No rash - Extremities Extremities: No deformity, Other (slight edema L ankle. Mild tenderness over talofibular ligament. No bony tenderness. Full ROM.) - Neuro Neuro: Alert and oriented X 3 - Psych Psych: Normal mood, Normal affect Results - Vitals Vitals: Oxygen O2 Source Room air PD MEDICAL DECISION MAKING - ED course Complexity details: considered differential, d/w patient ED course: I d/w pt that there is no sign of head trauma, and the pt has no pain and did not sustain a noticeable head injury. Her sx could be due to a concussion if she had a significant head injury, but since it does not seem she has, it is possible that she has a viral illness that has caused the sense of nausea and dizziness. The pt's ankle findings are also minimal. I do not feel that imaging is indicated for either of these conditions at this time. We have discussed home management of the sx, as well as the usual indications for return. Departure - Departure Disposition: 01 Home, Self Care Clinical Impression: Dizziness Nausea & vomiting Qualifiers: Vomiting type: unspecified Qualified Code(s): R11.2 - Nausea with vomiting, unspecified Fall Qualifiers: Encounter type: initial encounter Qualified Code(s): W19.XXXA - Unspecified fall, initial encounter Left ankle sprain Qualifiers: Encounter type: initial encounter Involved ligament of ankle: unspecified ligament Qualified Code(s): S93.402A - Sprain of unspecified ligament of left ankle, initial encounter Closed head injury Qualifiers: Encounter type: initial encounter Qualified Code(s): S09.90XA - Unspecified injury of head, initial encounter Condition: Stable Instructions: ED Head Injury Closed, ED Vertigo Unspecified, ED Nausea Vomiting Prescriptions: Ondansetron Odt [Zofran] 4 mg TL Q6H PRN #10 tablet PRN Reason: Nausea / Vomiting Comments: There is no evidence of head trauma on examination. Additionally, since you do not prominently remember hitting your head, it is not clear whether you struck your head or not. It is possible that this did happen in the midst of falling onto your back, and certainly, a sense of being dizzy or "off" and nauseated can result from concussion/closed head injury, as can difficulty focusing. The symptoms can also arise if you are In the early stages of a viral illness. At this point in time, the best plan is to rest and take the nausea medicine as needed. You should drink plenty of fluids. There is no need to be awakened throughout the night but rather, rest is what is recommended for potential concussion at this point in time. As far as her ankle, you may use ice and ibuprofen to help with any soreness or swelling. Please follow-up with your primary care physician as needed. If you develop severe and worsening headache, or if you are vomiting uncontrollably in a worsening fashion, please return to the emergency department. Your prescriptions have been electronically transmitted to the [facility] in [place]. Forms: Activity restrictions Discharge Date/Time: 03/04/22 09:07
== END 2022-03-04 09:07 | disposition home or self-care (01) ==
LOC: ED 08:04
DX: S09.90XA Unspecified injury of head, initial encounter (principal); S93.402A Sprain of unspecified ligament of left ankle, initial encounter; X50.1XXA Overexertion from prolonged static or awkward postures, initial encounter; W19.XXXA Unspecified fall, initial encounter
CPT/HCPCS: 99282; 99284; Q0162

== ENCOUNTER 2022-03-10 07:32 | Outpatient (CLI) | payer BC ==
[2022-03-10 07:55] LABS: BASOPHILS % (AUTO) 0.7 %; EOSINOPHILS # (AUTO) 0.2 10^3/uL (0.0-0.7); EOSINOPHILS % (AUTO) 3.8 %; HCT - HEMATOCRIT 40.3 % (37.0-47.0); HGB - HEMOGLOBIN 14.3 g/dL (12.0-16.0); LYMPHOCYTES # (AUTO) 1.8 10^3/uL (1.5-3.5); LYMPHOCYTES % (AUTO) 30.4 %; MEAN CORPUSCULAR HGB CONC 35.5 g/dL (32.0-36.0); MEAN PLATELET VOLUME 12.4 fL (7.9-10.8); MONOCYTES # (AUTO) 0.5 10^3/uL (0.0-1.0); MONOCYTES % (AUTO) 8.5 %; NEUTROPHILS # (AUTO) 3.4 10^3/uL (1.5-6.6); NEUTROPHILS % (AUTO) 56.3 %; PLT - PLATELET COUNT 197 10^3/uL (130-450); RED CELL DISTRIBUTION WIDTH 12.3 % (12.0-15.0)
[2022-03-10 08:14] LABS: ALBUMIN 4.3 g/dL (3.2-5.5); ALBUMIN/GLOBULIN RATIO 1.4 (1.0-2.2); ALKALINE PHOSPHATASE 57 IU/L (42-121); ALT ALANINE AMINOTRANSFERASE 26 IU/L (10-60); AST ASPARTATE AMINOTRANSFERASE 22 IU/L (10-42); BILIRUBIN,TOTAL 0.5 mg/dL (0.2-1.0); BUN - BLOOD UREA NITROGEN 12 mg/dL (6-20); CALCIUM 9.5 mg/dL (8.5-10.3); CARBON DIOXIDE - CO2 27 mmol/L (21-32); CHLORIDE 99 mmol/L (101-111); CHOL/HDL RATIO 3.6 (<4.4); CHOLESTEROL 153 mg/dL; CREATININE 0.8 mg/dL (0.4-1.0); GFR - MDRD 77 (>89); GLUCOSE 108 mg/dL (70-100); HDL CHOLESTEROL 42 mg/dL; LDL CHOLESTEROL,CALCULATED 76 mg/dL; LDL/HDL RATIO 1.8 (<4.4); POTASSIUM 4.3 mmol/L (3.5-5.0); SODIUM 134 mmol/L (135-145); TOTAL PROTEIN 7.4 g/dL (6.7-8.2); TRIGLYCERIDES 174 mg/dL; VLDL CHOLESTEROL 35 mg/dL
[2022-03-10 08:27] LABS: THYROID STIMULATING HORMONE 2.19 uIU/mL (0.34-5.60)
== END 2022-03-10 07:33 | disposition home or self-care (01) ==
LOC: LAB 07:32
PROVIDERS: ATTEND Registered Nurse
DX: Z79.899 Other long term (current) drug therapy (principal); Z13.220 Encounter for screening for lipoid disorders; R53.83 Other fatigue
CPT/HCPCS: 36415; 80053; 80061; 83721; 84443; 85025

== ENCOUNTER 2022-10-20 08:00 | Outpatient (CLI) | payer BC ==
[2022-10-20 21:27] LABS: BASOPHILS # (AUTO) 0.1 10^3/uL (0.0-0.1); BASOPHILS % (AUTO) 0.7 %; EOSINOPHILS # (AUTO) 0.2 10^3/uL (0.0-0.7); EOSINOPHILS % (AUTO) 3.4 %; HCT - HEMATOCRIT 40.6 % (37.0-47.0); HGB - HEMOGLOBIN 13.6 g/dL (12.0-16.0); LYMPHOCYTES # (AUTO) 2.6 10^3/uL (1.5-3.5); LYMPHOCYTES % (AUTO) 36.6 %; MEAN CORPUSCULAR HEMOGLOBIN 32.7 pg (27.0-31.0); MEAN CORPUSCULAR HGB CONC 33.5 g/dL (32.0-36.0); MEAN CORPUSCULAR VOLUME 97.6 fL (81.0-99.0); MEAN PLATELET VOLUME 13.6 fL (7.9-10.8); MONOCYTES # (AUTO) 0.5 10^3/uL (0.0-1.0); MONOCYTES % (AUTO) 6.9 %; NEUTROPHILS # (AUTO) 3.7 10^3/uL (1.5-6.6); NEUTROPHILS % (AUTO) 52.3 %; PLT - PLATELET COUNT 198 10^3/uL (130-450); RED BLOOD COUNT 4.16 10^6/uL (4.20-5.40); RED CELL DISTRIBUTION WIDTH 12.2 % (12.0-15.0); WHITE BLOOD COUNT 7.1 x10^3/uL (4.8-10.8)
[2022-10-20 21:34] LABS: ALBUMIN 4.5 g/dL (3.2-5.5); ALBUMIN/GLOBULIN RATIO 1.7 (1.0-2.2); ALKALINE PHOSPHATASE 63 IU/L (42-121); ALT ALANINE AMINOTRANSFERASE 28 IU/L (10-60); AST ASPARTATE AMINOTRANSFERASE 24 IU/L (10-42); BILIRUBIN,TOTAL 0.4 mg/dL (0.2-1.0); BUN - BLOOD UREA NITROGEN 15 mg/dL (6-20); CALCIUM 9.3 mg/dL (8.5-10.3); CARBON DIOXIDE - CO2 27 mmol/L (21-32); CHLORIDE 104 mmol/L (101-111); CREATININE 0.8 mg/dL (0.4-1.0); GFR - MDRD 77 (>89); GLUCOSE 94 mg/dL (70-100); SODIUM 139 mmol/L (135-145); TOTAL PROTEIN 7.1 g/dL (6.7-8.2)
[2022-10-20 21:35] LABS: CRP - C-REACTIVE PROTEIN < 1.0 mg/dL (0-1.0)
== END 2022-10-20 23:59 | disposition home or self-care (01) ==
LOC: LAB.N 08:00
PROVIDERS: ATTEND Registered Nurse
DX: N64.4 Mastodynia (principal); N64.59 Other signs and symptoms in breast
CPT/HCPCS: 36415; 80053; 85025; 86140

== ENCOUNTER 2022-10-27 08:22 | Outpatient (CLI) | payer BC ==
--- NOTE | 2022-10-28 10:14 | Mammography Report ---
UNILATERAL LEFT DIGITAL DIAGNOSTIC MAMMOGRAM 3D/2D: 10/27/2022 CLINICAL: Intermittent pain in left breast. Left breast skin changes. Comparison is made to exams dated: 03/31/2022 mammogram - [facility], 05/14/2021 [facility], 11/04/2020 mammogram, 06/21/2018 mammogram, and 06/15/2018 mammogram - [facility]. There are scattered areas of fibroglandular density in the left breast (category b / 25%-50% glandula r tissue). No significant masses, calcifications, or other findings are seen in the breast. IMPRESSION: INCOMPLETE: NEEDS ADDITIONAL IMAGING EVALUATION There is no mammographic abnormality seen in the left breast to correspond with the area of areolar r edness and the focal area of pain, however, ultrasound is recommended and will be performed immediate ly following this exam. Future imaging is recommended as follows: 03/31/2023 mammogram. Based on the Tyrer Cuzick model (a risk assessment model) the patients lifetime risk is 6.7% and her 10 year risk is 1.4%. According to the ACR, ACS, and NCCN guidelines, an annual breast MRI exam olivia g with mammogram is recommended if the patients lifetime risk is 20% or greater. This exam was interpreted at Station ID: [id number]. NOTE: For mammograms, a report in lay terms will be sent to the patient. Approximately 15% of breast malignancies will not be visualized mammographically. In the management of a palpable breast mass, a negative mammogram must not discourage biopsy of a clinically suspicious lesion. Electronically Signed By: Melissa randolph/:10/27/2022 08:57:49 ACR BI-RADS Category 0: Incomplete 3340F PARENCHYMAL PATTERN: (A) - The breast(s) demonstrate(s) scattered fibroglandular densities. BI-RADS CATEGORY: (0) - 0 Ultrasound [id number] Immediate follow-up LATERALITY: (B)
--- NOTE | 2022-10-28 10:14 | Ultrasound Report ---
LIMITED ULTRASOUND OF LEFT BREAST: 10/27/2022 CLINICAL: Diffuse left breast pain. Comparison is made to exams dated: 10/27/2022 mammogram, 03/31/2022 mammogram - [facility], 05/14/2021 mammogram - [facility], 11/04/2020 ultrasound, 11/04/2020 mammogram, and 10/19/2020 mammogram - [facility]. Ultrasound of the left breast upper outer quadrant and retroareolar regions was performed on the are a of interest. Jones scale images of the real-time examination were reviewed. IMPRESSION: NEGATIVE There is no sonographic evidence of malignancy. There is no mammographic or sonographic abnormality seen in the left breast to correspond with the fo tammy breast pain, however, clinical followup is recommended. There is no mammographic or sonographic abnormality seen in the left breast to correspond with the fo tammy nipple redness in the sub-areolar depth. However, Padget's disease of the breast cannot be exclud ed by imaging. If clinically appropriate, surgical consult is recommended. Return to screening mammogram schedule is recommended. This exam was interpreted at Station ID: [id number]. Electronically Signed By: Melissa Arreaga M.D. lk/:10/27/2022 10:39:55 Ultrasound BI-RADS: 1 Negative BI-RADS CATEGORY: (1) - 1 Mammogram [id number] 1 year screening LATERALITY: (B)
== END 2022-10-27 08:23 | disposition home or self-care (01) ==
LOC: DI 08:22
PROVIDERS: ATTEND Registered Nurse
DX: N64.4 Mastodynia (principal); N64.59 Other signs and symptoms in breast

== ENCOUNTER 2023-04-22 08:00 | Outpatient (CLI) | payer BC | END 2023-04-22 23:59 | disposition home or self-care (01) | LOC: LAB.S 08:00 | PROVIDERS: ATTEND Physician Assistant | DX: H60.91 Unspecified otitis externa, right ear (principal) | CPT/HCPCS: 87070; 87077; 87181; 87205 ==

== ENCOUNTER 2023-05-02 08:00 | Outpatient (CLI) | payer BC ==
--- NOTE | 2023-05-02 14:33 | XRAY Report ---
PROCEDURE: Hip 2 View LT INDICATIONS: LEFT HIP PAIN TECHNIQUE: 2 views of the hip were acquired. COMPARISON: 10/24/2018 FINDINGS: Bones: Interval right hip arthroplasty. Mildly decreased left femoral acetabular joint space loss an d moderate femoral head spurring. No acute fracture. Chondroid joints. Soft tissues: No suspicious soft tissue calcifications or masses. An IUD is in place. IMPRESSION: 1. Expected appearance of vertebroplasty. 2. No significant progression of left hip osteoarthritic change. 3. Expected position of IUD. Reviewed by: Adalgisa Yepez MD on 05/02/2023 2:31 PM PDT Approved by: Adalgisa Yepez MD on 05/02/2023 2:31 PM PDT Station ID: [id number]
== END 2023-05-02 23:59 | disposition home or self-care (01) ==
LOC: DI.WOS 08:00
PROVIDERS: ATTEND Physician Assistant Surgical
DX: M16.12 Unilateral primary osteoarthritis, left hip (principal); Z97.5 Presence of (intrauterine) contraceptive device

== ENCOUNTER 2023-05-31 08:00 | Outpatient (CLI) | payer BC ==
--- NOTE | 2023-05-31 16:48 | XRAY Report ---
PROCEDURE: Hip 2 View LT INDICATIONS: LEFT HIP PAIN TECHNIQUE: 2 views of the hip were acquired. COMPARISON: 05/02/2023 FINDINGS: Bones: No fractures or dislocations. No suspicious bony lesions. Mild to moderate left hip osteoart hritis with osseous hypertrophy and slight joint space narrowing. Soft tissues: No suspicious soft tissue calcifications or masses. IUD noted. IMPRESSION: Mild to moderate left hip osteoarthritis. No fracture. No acute osseous lesion. If symptoms and/or clinical concern for pathology persists, fur ther assessment with advanced imaging (CT, MR) should be considered. Reviewed by: Mechelle Murphy MD, PhD on 05/31/2023 4:47 PM PDT Approved by: Mechelle Murphy MD, PhD on 05/31/2023 4:47 PM PDT Station ID: [id number]
== END 2023-05-31 23:59 | disposition home or self-care (01) ==
LOC: DI.WOS 08:00
PROVIDERS: ATTEND Physician Assistant Surgical
DX: M16.12 Unilateral primary osteoarthritis, left hip (principal)

== ENCOUNTER 2023-08-27 08:38 | Outpatient (CLI) | payer OTHER, BC | END 2023-08-27 23:59 | disposition critical access hospital (66) | LOC: EMS 08:38 | DX: M54.2 Cervicalgia (principal); V57.5XXA Driver of pick-up truck or van injured in collision with fixed or stationary object in traffic accident, initial encounter; Y92.413 State road as the place of occurrence of the external cause | CPT/HCPCS: A0425; A0429 ==

== ENCOUNTER 2023-08-27 08:48 | Emergency (ER) | payer OTHER, BC ==
[2023-08-27] MEDS ORDERED: ONDANSETRON 4 MG/2 ML VIAL IVP STA (09:24)
[2023-08-27] MEDS ORDERED: KETOROLAC 15 MG/ML VIAL IVP STA (09:24)
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
[2023-08-27] MEDS ORDERED: iohexoL-300 100 ML VIAL ONE (10:01)
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
[2023-08-27] MEDS ORDERED: iohexoL-300 100 ML VIAL IVP ONE (11:13)
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
[2023-08-27 12:58] VITALS: BP 145/86; O2SAT 100
--- NOTE | 2023-08-27 13:08 | CT Report ---
PROCEDURE: Chest W INDICATIONS: fall with anterior chest/abd pain CONTRAST: 100ml omni 300 TECHNIQUE: After the administration of intravenous contrast, a CT scan of the chest was performed. Images were recorded and evaluated at appropriate window settings. Reformats: axial MIP of the chest, coronal and sagittal. For radiation dose reduction, the following was used: automated exposure control, adjustme nt of mA and/or kV according to patient size. COMPARISON: None. FINDINGS: Image quality: Excellent. Lungs and pleura: No consolidation. No pleural effusions. No pneumothorax. No suspicious pulmonary n odules which require follow up. Mediastinum: Heart size is normal. No pericardial effusion. No large vessel abnormality. No mediastin al adenopathy by size criteria. Tiny hiatal hernia. Chest wall and lower neck: Thyroid is unremarkable. No axillary or supraclavicular adenopathy by size . Bones: No aggressive osseous abnormality. Upper Abdomen: Unremarkable. IMPRESSION: No acute traumatic findings in the chest. Reviewed by: Memo Matias MD on 08/27/2023 1:07 PM PST Approved by: Memo Matisa MD on 08/27/2023 1:07 PM PST Station ID: [id number]
== END 2023-08-27 12:48 | disposition home or self-care (01) ==
LOC: EDUNIT# → EDBD → ED 08:48
DX: S09.90XA Unspecified injury of head, initial encounter (principal); S19.9XXA Unspecified injury of neck, initial encounter; V49.9XXA Car occupant (driver) (passenger) injured in unspecified traffic accident, initial encounter; I10 Essential (primary) hypertension
CPT/HCPCS: 70450; 71260; 72125; 74177; 96374; 96375; 99284; Q9967